=== PATIENT | male | born 1995 | race Caucasian/White ===

== ENCOUNTER → 2018-12-17 | Outpatient (CLI) | payer BC ==
--- NOTE | 2018-12-18 10:32 | XR ---
EXAMINATION TYPE: XR facial bones complete, XR nasal bone DATE OF EXAM: 12/17/2018 COMPARISON: NONE HISTORY: Headaches TECHNIQUE: 3 views of the facial bones and 3 views of the nasal bone were obtained. FINDINGS: There is mild mucosal thickening in the maxillary sinuses, right greater than left. Very mi nimal rightward nasal septal deviation. Bilateral inferior nasal turbinate mucosal hypertrophy is see n. Remaining visualized paranasal sinuses and mastoid air cells appear well aerated. Nasal bone appea rs intact. Bony orbits also appear intact. No radiopaque foreign body. IMPRESSION: Maxillary paranasal sinus disease and mucosal thickening of the inferior nasal turbinates bilaterally. No acute displaced nasal bone fracture.
== END | disposition home or self-care (01) ==
LOC: RADXRMAIN 16:23
PROVIDERS: ATTEND Psychiatry & Neurology Neurology
DX: J34.89 Other specified disorders of nose and nasal sinuses (principal); S02.2XXA Fracture of nasal bones, initial encounter for closed fracture
CPT/HCPCS: 70150; 70160

== ENCOUNTER → 2019-01-19 | Outpatient (CLI) | payer BC ==
--- NOTE | 2019-01-19 14:27 | MR ---
EXAMINATION TYPE: MR brain wo/w con DATE OF EXAM: 01/19/2019 COMPARISON: NONE HISTORY: increasing memory loss/headache TECHNIQUE: Multiplanar, multisequence images of the brain and brainstem is performed without and with IV contras t, utilizing 10 mL intravenous Gadavist . FINDINGS: Diffusion weighted images demonstrate no evidence of a recent infarct or other diffusion ab normality. There is no extra-axial fluid collection. There are few foci of T2/FLAIR hyperintensity i n the deep white matter, 5 on the right and 4 on the left measuring up to 3 mm on FLAIR axial fat-sat image 19 in the left parietal lobe. These do not exhibit abnormal enhancement or restricted diffusio n. The ventricular system diffusely prominent for the patient's age and to a lesser degree peripheral sulci are prominent for the patient's age. The brain volume is age appropriate. Midline structures demonstrate normal morphology. The craniocervical junction appears within normal limits. Post contrast images demonstrate no abnormal enhancement. The dural venous sinuses appear pa tent. The visualized sinuses are clear and the globes are intact. IMPRESSION: 1. Ventricular size is prominent for the patient's age. Consideration should be given to normal press ure hydrocephalus or nonobstructing hydrocephalus. No transependymal edema or obstructing mass. Cereb ral aqueduct and fourth ventricle are patent. 2. Degree of sulcal atrophy although only mild is out of proportion for the patient's age and is glob al without lobar predominance. 3. Mild burden nonspecific white matter change, although also abnormal for the patient's age. Demyeli nating disease or vasculitis are primary considerations. Distribution is in the deep white matter wit h no pericallosal plaques to highly suggest multiple sclerosis. No restricted diffusion or enhancemen t to suggest active demyelination. 4. No acute infarct, midline shift or mass effect. No abnormal intracranial enhancement.
== END | disposition home or self-care (01) ==
LOC: RADMRIMAIN 12:10
PROVIDERS: ATTEND Psychiatry & Neurology Neurology
DX: G31.89 Other specified degenerative diseases of nervous system (principal); R90.89 Other abnormal findings on diagnostic imaging of central nervous system; D49.81 Neoplasm of unspecified behavior of retina and choroid
CPT/HCPCS: 70553; A9585

== ENCOUNTER → 2019-03-18 | Outpatient (CLI) | payer BC ==
[2019-03-18 15:29] LABS: Partial Thromboplastin Time 24.8 sec (22.0-30.0)
[2019-03-19] LABS: BUN/Creat Ratio 18.89 Ratio (12.00-20.00); Calcium 9.5 mg/dL (8.7-10.3); Chloride 104 mmol/L (96-109); Glucose 194 mg/dL (70-110); Potassium 4.3 mmol/L (3.5-5.5); Sodium 141 mmol/L (135-145)
[2019-03-19 00:01] LABS: Hemoglobin A1C 7.9 % (4.0-6.0)
== END | disposition home or self-care (01) ==
LOC: LABWHC1 14:02
PROVIDERS: ATTEND Psychiatry & Neurology Neurology
DX: G25.0 Essential tremor (principal); G44.219 Episodic tension-type headache, not intractable; M54.2 Cervicalgia; G44.221 Chronic tension-type headache, intractable; H53.9 Unspecified visual disturbance; R41.3 Other amnesia
CPT/HCPCS: 36415; 80048; 82306; 82607; 83036; 83090; 84439; 84443; 85610; 85652; 85730; 86038; 86618

== ENCOUNTER → 2020-07-19 | Outpatient (CLI) | payer BC ==
--- NOTE | 2020-07-20 11:39 | MR ---
EXAMINATION TYPE: MR brain wo/w con DATE OF EXAM: 07/19/2020 COMPARISON: 01/19/2019 HISTORY: Migraines, Dizziness and Extreme Tiredness CONTRAST: Performed utilizing 11.5 mL intravenous Gadavist gadolinium contrast. TECHNIQUE: Multiplanar, multiecho imaging on a 3.0 Skylar magnet is performed through the brain. Stud y is performed within 24 hours of arrival to the hospital. The craniovertebral junction is normal. The pituitary is normal. Diffusion-weighted imaging is performed. No abnormal hyperintensity is present to suggest an acute i ntracranial infarct or acute ischemic change. There are scattered punctate hyperintensities within subcortical white matter within the left barrios radiata. These number 8 on the left and 2 on the right. The largest is in the right frontal lobe whit e matter measuring 0.5 cm in AP dimension. This is more prominent than the comparison study. These ma y have increased in number from the prior study. Ventricles and sulci are prominent for the patient age. No temporal horn dilatation is evident. Following contrast, no suspicious enhancement is evident. IMPRESSIONS: 1. Increasing scattered punctate white matter changes are nonspecific but can be related to migraine headache changes. Differential diagnosis would include but is not limited to vasculitis. 2. Prominence of the ventricles and mild prominence of sulci appear similar to comparison.
== END | disposition home or self-care (01) ==
LOC: RADMRIMAIN 11:25
PROVIDERS: ATTEND Psychiatry & Neurology Neurology
DX: R93.0 Abnormal findings on diagnostic imaging of skull and head, not elsewhere classified (principal)
CPT/HCPCS: 70553; A9585

== ENCOUNTER → 2022-12-21 | Outpatient (CLI) | payer OTHER ==
--- NOTE | 2022-12-21 15:13 | MR ---
EXAMINATION TYPE: MR brain wo con DATE OF EXAM: 12/21/2022 COMPARISON: 07/19/2020 HISTORY: 27-year-old male R94.02 ABNORMAL BRAIN SCAN R53.83 G43.709, Headaches, weakness, fatigue TECHNIQUE: Multiplanar, multisequence images of the brain and brainstem were acquired without IV con trast. Diffusion weighted imaging is performed. FINDINGS: No evidence for acute infarction, hemorrhage, mass, mass effect, midline shift, herniation, effacemen t of basal cisterns, or extra-axial fluid collection. There is mild to moderate ventricular prominence with Scott's ratio calculated at 0.36, unchanged. T2/FLAIR weighted sequences show minimal scattered right signal foci, approximately 4 in the left cer ebral hemisphere and one in the right cerebral hemisphere. Major intracranial flow voids are intact. Midline structures demonstrate normal morphology. The craniocervical junction is normal. Rightward nasal septal deviation. Moderate mucosal thickening ethmoid air cells. Globes are intact. IMPRESSION: 1. Mild to moderate hydrocephalus with Scott's ratio calculated at 0.36, unchanged from 2020. 2. Punctate bright white matter change in the cerebral hemispheres with trace overall burden also rem ains unchanged from 2020. 3. No acute intracranial abnormality seen. 4. Moderate chronic ethmoid sinus disease. Rightward nasal septal deviation.
== END | disposition home or self-care (01) ==
LOC: RADMRIMAIN 12:33
PROVIDERS: ATTEND Family Medicine
DX: G43.709 Chronic migraine without aura, not intractable, without status migrainosus (principal); G91.9 Hydrocephalus, unspecified; J32.2 Chronic ethmoidal sinusitis; J34.2 Deviated nasal septum; G93.89 Other specified disorders of brain; R53.83 Other fatigue; R94.02 Abnormal brain scan; R53.1 Weakness
CPT/HCPCS: 70551

== ENCOUNTER → 2023-06-10 | Outpatient (CLI) | payer OTHER ==
[2023-06-10 15:13] LABS: African American GFR (CKD) >90 (>60 ml/min/1.73 sqM); Blood Urea Nitrogen 15 mg/dL (9-20); Non-African American GFR(CKD) >90 (>60 ml/min/1.73 sqM)
--- NOTE | 2023-06-14 10:18 | CT ---
EXAMINATION TYPE: CT abdomen pelvis w con DATE OF EXAM: 06/10/2023 COMPARISON: None INDICATION: Left side abdominal pain x 6 months DLP: 1950 mGycm, Automated exposure control for dose reduction was used. CONTRAST: 100 mL of Isovue 300. Study performed with Oral Contrast TECHNIQUE: Axial images were obtained from above the diaphragm to the pubic rami in the axial plane a t 5 mm thick sections. Reconstructed images are reviewed on the computer in the coronal plane. FINDINGS: Limited CT sections are obtained the lung bases. The lung bases are clear. CT ABDOMEN: There are a few scattered small lymph nodes in the epigastric mesentery. Liver: Normal Spleen: Normal Pancreas: Normal Adrenal glands: The adrenal glands are normal. Gallbladder: Normal Kidneys: No masses are evident. No hydronephrosis is present. No cysts are present. Delayed images were obtained through the kidneys, which remain unremarkable. Aorta: None Inferior vena cava: Normal. CT PELVIS: Loops of bowel within the abdomen and pelvis are normal. Scattered diverticuli within the sigmoid co ynes. No adjacent inflammatory change. There are loops of bowel which are incompletely distended or lack oral contrast limiting their evaluation. Appendix: Normal as visualized. Urinary bladder: Mild wall thickening may be present diffusely. Correlate for cystitis. Genitourinary structures: Prostate appears normal. Osseous structures: No suspicious lytic or sclerotic lesions. IMPRESSION: 1. No suspicious acute changes to account for left abdominal pain. 2. There may be some mild wall thickening diffusely of the urinary bladder. Correlate for cystitis.
== END | disposition home or self-care (01) ==
LOC: RADCTMAIN 14:02
PROVIDERS: ATTEND Family Medicine
DX: R10.84 Generalized abdominal pain (principal); R53.83 Other fatigue; R19.7 Diarrhea, unspecified
CPT/HCPCS: 82565; 84520; 74177; 36415; Q9967